=== PATIENT | female | born 1990 | race Caucasian/White ===

== ENCOUNTER 2017-02-23 19:57 | Emergency (ER) | payer BC ==
[~2017-02-23] VITALS: Ht 167.6 cm; Wt 54.4 kg
[2017-02-23] MEDS ORDERED: EPIPEN 2-P0.3 MG/0.3 IM (22:38)
[2017-02-23 22:59] VITALS: BP 102/52
== END 2017-02-23 23:01 | disposition home or self-care (01) ==
LOC: ER 19:57
DX: T78.00XA Anaphylactic reaction due to unspecified food, initial encounter (principal); E05.90 Thyrotoxicosis, unspecified without thyrotoxic crisis or storm; F10.99 Alcohol use, unspecified with unspecified alcohol-induced disorder